=== PATIENT | female | born 1945 | race Caucasian/White ===

== ENCOUNTER 2019-11-08 11:13 | Emergency (ER) | payer MEDICARE, MEDICAID ==
[2019-11-08 11:57] LABS: ABSOLUTE NEUTROPHIL COUNT 4.65; BASO % 0.4 % (0-6); GRAN % 58.7 % (47-80); HEMOGLOBIN 12.6 gm/dl (11.6-16.0); LYMPH % 30.8 % (16-45); MEAN CELL VOLUME 97.1 fl (81-97); MEAN CORPUSCULAR HEMOGLOBIN 30.6 pg (27-33); MEAN CORPUSCULAR HGB CONC 31.5 g/dl (32-36); MEAN PLATELET VOLUME 10.1 fl (7.4-10.4); MONO % 9.1 % (0-9); PLATELET COUNT 244 K/uL (130-400); RED BLOOD COUNT 4.12 M/uL (3.80-5.40); RED CELL DISTRIBUTION WIDTH 15.5 % (11.5-14.5); WHITE BLOOD COUNT W/O DIFF 7.9 K/uL (4.2-12.2)
[2019-11-08 12:05] LABS: BLOOD UREA NITROGEN 10 mg/dL (8-23); CREATININE 0.6 mg/dL (0.5-0.9); EST GLOMERULAR FILTRATION RATE > 60 mL/min
[2019-11-08 12:08] LABS: GLUCOSE,RANDOM 271 mg/dL (74-109)
--- NOTE | 2019-11-08 13:46 | Emergency Department Record ---
History of Present Illness - General Chief complaint: Swelling of legs Stated complaint: LEG RED Time Seen by Provider: 11/08/19 11:31 Source: Patient Mode of Arrival: Wheelchair Limitations: No limitations - History of Present Illness Initial comments: pt was sent here from [facility] to get a doppler of her leg to r/o dvt. it has swelling, tenderness and erythema Complaint: Extremity pain, Extremity swelling Onset/Timin -: Days(s) Location: Left, Lower Leg History of Same: No Severity scale (1-10): 4 Quality: Aching Consistency: Constant Improves with: Nothing Worsens with: Palpation, Weight bearing Associated Symptoms: Denies other symptoms - Related Data Home Medications Medication Instructions Recorded Confirmed Last Taken Gabapentin 300 mg PO BID 11/08/19 11/08/19 Unknown Hydrocodone/Acetaminophen [[place] 1 each PO Q6H 11/08/19 11/08/19 Unknown 7.5-325 Tablet] Minocycline HCl 100 mg PO DAILY 11/08/19 11/08/19 Unknown Previous Rx's Medication Instructions Recorded Sulfamethoxazole/Trimethoprim 1 each PO BID #20 tablet 11/08/19 [Bactrim Ds Tablet] Allergies Allergy/AdvReac Type Severity Reaction Status Date / Time albuterol Allergy Severe ANAPHYLAXIS Unverified 11/08/19 11:21 bacitracin Allergy Severe RASH Unverified 11/08/19 11:21 [From Neosporin ([id number])] bacitracin zinc Allergy Severe RASH Unverified 11/08/19 11:21 [From Neosporin ([id number])] morphine Allergy Severe heart races Unverified 11/08/19 11:21 neomycin sulfate Allergy Severe RASH Unverified 11/08/19 11:21 [From Neosporin ([id number])] polymyxin B Allergy Severe RASH Unverified 11/08/19 11:21 [From Neosporin ([id number])] Travel/Exposure Screening - Travel/Exposure Within Last 30 Days Have you traveled within the last 30 days?: No - Additonal Travel/Exposure Details Have you been exposed to anyone with a communicable illness?: No Review of Systems Reviewed: No additional complaints except as noted below Constitutional: Reports: As per HPI. Denies: Chills, Fever, Malaise, Night sweats, Weakness, Weight change Eyes: Reports: As per HPI. Denies: Eye discharge, Eye pain, Photophobia, Vision change ENT: Reports: As per HPI. Denies: Congestion, Dental pain, Ear pain, Epistaxis, Hearing loss, Throat pain Respiratory: Reports: As per HPI. Denies: Cough, Dyspnea, Hemoptysis, Stridor, Wheezes Cardiovascular: Reports: As per HPI. Denies: Arrhythmia, Chest pain, Dyspnea on exertion, Edema, Murmurs, Orthopnea, Palpitations, Paroxysmal nocturnal dyspnea, Rheumatic Fever, Syncope Endocrine: Reports: As per HPI. Denies: Fatigue, Heat or cold intolerance, Polydipsia, Polyuria Gastrointestinal: Reports: As per HPI. Denies: Abdominal pain, Constipation, Diarrhea, Hematemesis, Hematochezia, Melena, Nausea, Vomiting Genitourinary: Reports: As per HPI. Denies: Abnormal menses, Discharge, Dyspareunia, Dysuria, Frequency, Hematuria, Incontinence, Retention, Urgency Musculoskeletal: Reports: As per HPI. Denies: Arthralgia, Back pain, Gout, Joint swelling, Myalgia, Neck pain Skin: Reports: As per HPI, Rash. Denies: Bruising, Change in color, Change in hair/nails, Lesions, Pruritus Neurological: Reports: As per HPI. Denies: Abnormal gait, Confusion, Headache, Numbness, Paresthesias, Seizure, Tingling, Tremors, Vertigo, Weakness Psychiatric: Reports: As per HPI. Denies: Anxiety, Auditory hallucinations, Depression, Homicidal thoughts, Suicidal thoughts, Visual hallucinations Hematological/Lymphatic: Reports: As per HPI. Denies: Anemia, Blood Clots, Easy bleeding, Easy bruising, Swollen glands Past Medical History - SOCIAL HISTORY Smoking Status: Former smoker Alcohol Use: None Drug Use: None - RESPIRATORY Hx Respiratory Disorders: Yes Hx COPD: Yes Hx Sleep Apnea: Yes Hx of CPAP: Yes - CARDIOVASCULAR Hx Cardio Disorders: Yes Hx Hypertension: Yes - NEURO Hx Neuro Disorders: No - GI Hx GI Disorders: No - Hx Genitourinary Disorders: No - ENDOCRINE Hx Endocrine Disorders: Yes Hx Diabetes: Yes (type 2) Hx Thyroid Disease: No - MUSCULOSKELETAL Hx Musculoskeletal Disorders: Yes Hx Arthritis: Yes - PSYCH Hx Psych Problems: No - HEMATOLOGY/ONCOLOGY Hx Hematology/Oncology Disorders: No Family Medical History Any Significant Family History?: No Physical Exam - General General Appearance: Alert, Oriented x3, Cooperative, No acute distress - Head Head exam: Normal inspection - Eye Eye exam: Normal appearance, PERRL, EOMI Pupils: Normal accommodation - ENT ENT exam: Normal exam, Mucous membranes moist, Normal external ear exam, Normal orophraynx Ear exam: Normal external inspection. negative: External canal tenderness Nasal Exam: Normal inspection. negative: Discharge, Sinus tenderness Mouth exam: Normal external inspection, Tongue normal Teeth exam: Normal inspection. negative: Dental caries Throat exam: Normal inspection. negative: Tonsillar erythema, Tonsillar exudate - Neck Neck exam: Normal inspection, Full ROM. negative: Tenderness - Respiratory Respiratory exam: Normal lung sounds bilaterally. negative: Respiratory distress - Cardiovascular Cardiovascular Exam: Regular rate, Normal rhythm, Normal heart sounds - GI/Abdominal GI/Abdominal exam: Soft, Normal bowel sounds. negative: Tenderness - Rectal Rectal exam: Deferred - exam: Deferred - Extremities Extremities exam: Normal inspection, Full ROM, Normal capillary refill, Tenderness Image of Full Body: 1 - swelling, erythema, tenderness - Back Back exam: Reports: Normal inspection, Full ROM. Denies: Muscle spasm, Rash noted, Tenderness - Neurological Neurological exam: Alert, Normal gait, Oriented X3, Reflexes normal - Psychiatric Psychiatric exam: Normal affect, Normal mood - Skin Skin exam: Dry, Intact, Normal color, Warm Course Vital Signs 11/08/19 11/08/19 11:14 12:28 Temperature 98.1 F Pulse Rate 90 Pulse Rate [ 87 Pulse Ox Probe] Respiratory 20 20 Rate Blood Pressure 179/80 Blood Pressure 147/78 [Right Arm] Pulse Ox 97 97 Medical Decision Making - Lab Data Result diagrams: 11/08/19 11:49 11/08/19 11:49 Lab Results 11/08/19 11/08/19 Range/Units 11:49 11:49 WBC 7.9 (4.2-12.2) K/uL RBC 4.12 (3.80-5.40) M/uL Hgb 12.6 (11.6-16.0) gm/dl Hct 40.0 (35.0-47.0) % MCV 97.1 H (81-97) fl MCH 30.6 (27-33) pg MCHC 31.5 L (32-36) g/dl RDW 15.5 H (11.5-14.5) % Plt Count 244 (130-400) K/uL MPV 10.1 (7.4-10.4) fl Gran % 58.7 (47-80) % Lymphocytes % 30.8 (16-45) % Monocytes % 9.1 H (0-9) % Eosinophils % 1.0 (0-6) % Basophils % 0.4 (0-6) % Absolute Neutrophils 4.65 Sodium 140 (136-145) mmol/L Potassium 3.8 (3.4-4.5) mmol/L Chloride 99 (98-107) mmol/L Carbon Dioxide 27.0 (22-29) mmol/L Anion Gap 14.0 (7-16) BUN 10 (8-23) mg/dL Creatinine 0.6 (0.5-0.9) mg/dL Estimated GFR > 60 mL/min Random Glucose 271 H (74-109) mg/dL Calcium 9.1 (8.8-10.2) mg/dL Disposition Disposition: Discharge Clinical Impression: Cellulitis, leg Qualifiers: Laterality: left Qualified Code(s): L03.116 - Cellulitis of left lower limb Disposition: Home, Self-Care Condition: (1) Good Instructions: Cellulitis (ED) Additional Instructions: follow up with family doctor. return sooner if worse.. elevate leg. moist heat soaks. Prescriptions: Sulfamethoxazole/Trimethoprim [Bactrim Ds Tablet] 1 each PO BID #20 tablet Forms: Patient Portal Access Quality - Quality Measures Quality Measures: N/A - Blood Pressure Screening Does Patient Have Any of the Following: No Blood Pressure Classification: Pre-Hypertensive BP Reading Systolic Measurement: 179 Diastolic Measurement: 80 Screening for High Blood Pressure: < Pre-Hypertensive BP, F/U Documented > [G8950] Pre-Hypertensive Follow-up Interventions: Follow-up with rescreen every year.
--- NOTE | 2019-11-08 14:40 | ULTRASOUND REPORT ---
EXAMINATION: Left Lower Extremity Venous Duplex Doppler Ultrasound EXAM DATE: 11/08/2019 2:05 PM TECHNIQUE: Real-time B-mode imaging with and without compression was used to evaluate the left lower extremity for deep venous thrombosis (DVT). Duplex Doppler with color and spectral Doppler was used . INDICATION: leg pain COMPARISON: None FINDINGS: Left Common Femoral Vein: No DVT. Left Femoral Vein: No DVT. Left Popliteal Vein: No DVT. Left Proximal Deep Femoral Vein: No DVT. Left Posterior Tibial Veins: No DVT. Left Peroneal Veins: No DVT. Left proximal Great Saphenous Vein: No thrombus. Duplex Doppler: Spectral Doppler waveforms show normal respiratory phasicity in the common femoral vein. Additional Findings: Small knee effusion IMPRESSION: 1. There is no deep venous thrombosis in the visualized deep veins of the left lower extremity. 2. Small knee effusion, follow-up MRI as clinically directed Dictated by: Mikie Cuenca MD on 11/08/2019 2:37 PM. .
[2019-11-08] MEDS ORDERED: TMP/SMZ 160MG/800MG TAB PO ONE (14:53)
== END 2019-11-08 15:19 | disposition home or self-care (01) ==
LOC: ER 11:13
DX: L03.116 Cellulitis of left lower limb (principal); M79.662 Pain in left lower leg; I10 Essential (primary) hypertension; E11.9 Type 2 diabetes mellitus without complications; Z87.891 Personal history of nicotine dependence
CPT/HCPCS: 80048; 85025; 99284